=== PATIENT | male | born 1955 | race Caucasian/White ===

== ENCOUNTER → 2024-02-14 06:05 | Day surgery (SDC) | payer MEDICARE, OTHER, SELFPAY ==
--- NOTE | 2024-01-10 10:42 | CM ---
Patient is scheduled for an elective L Reverse TSA on 01/05/24- he is a same day patient. Spoke with patient prior to surgery. Introduced role of Orthopedic Navigator. Patient reports that he lives with his in a one story home. Currently he
functions independently. He does not use any DME and has never had VN services. PCP is Dr. Ibrahima Oreilly.
Discussed orthopedic program and post surgical plans. Patient will return home when directed by surgeon. Reviewed MD follow up and transition to outpatient therapy. Patient is in agreement with tentative plan and states that his will be home
with him and can assist if needed.
Patient will complete online education.
Plan: Orthopedic Navigator will be involved in the care of patient after surgery and will reassess discharge needs at that time.
[2024-01-22 13:45] VITALS: BMI 31.7
[2024-01-22 14:09] LABS: Hematocrit 33.9 % (39.0-52.0); Hemoglobin 11.3 g/dL (13.0-18.0); Mean Corp Hgb Conc. 33.3 g/dL (33.0-37.0); Mean Corpuscular Hgb 28.3 pg (27.0-31.0); Mean Platelet Volume 9.5 fL (7.4-10.4); Platelet Count 274 10^3/uL (130-400); Red Blood Cell Count 3.99 10^6/uL (4.70-6.10); Red Cell Dist. Width 17.2 % (11.5-14.5)
[2024-01-22 14:26] LABS: ALT (SGPT) 20 U/L (0-50); AST (SGOT) 20 U/L (17-59); Albumin 3.8 g/dl (3.5-5.0); Alkaline Phosphatase 83 U/L (38-126); Blood Urea Nitrogen 27 mg/dl (9-20); Calcium 8.9 mg/dl (8.4-10.2); Carbon Dioxide 29 mmol/L (22-30); Chloride 104 mmol/L (98-107); Estimated Creatinine Clearance 123 ml/min; Glucose 113 mg/dl (70-99); Potassium 4.1 mmol/L (3.5-5.1); Sodium 137 mmol/L (135-145); Total Bilirubin 0.9 mg/dl (0.2-1.3); Total Protein 6.2 g/dl (6.3-8.2); eGFR > 60.00
[2024-01-22 14:54] VITALS: BMI 31.7
[2024-02-14] VITALS (11 sets, daily range): BP systolic 120–138; BP diastolic 59–72; BMI 31.7
--- NOTE | 2024-02-14 06:36 | W.DS.TRANS ---
DC Summary - Mechanical Field Engineer
-
Discharge Instructions:
Sleep Apnea Risk Intermediate
Discharge Diagnosis/Procedures L Reverse TSA Dr. Bonner 02/14/24
Diet As tolerated
Activity Other activity
Driving Restrictions No driving
Instructions:
Stand-Alone Forms: SDS Total Shoulder D/C Inst.
Changes to Home Medications: Yes
Discharge Medications:
DC Medications w/original date entered in [facility]
atenolol 50 mg tablet 50 mg PO HS 12/06/21
baclofen 10 mg tablet 10 mg PO TID PRN pain 12/06/21
docusate sodium 100 mg capsule 100 mg PO BID 12/06/21
melatonin 10 mg tablet 20 mg PO HS 12/06/21
pantoprazole 40 mg tablet,delayed release 40 mg PO HS 12/06/21
pramipexole 0.125 mg tablet 0.125 mg PO BID 12/06/21
rosuvastatin 5 mg tablet 2.5 mg PO MOWEFR 12/06/21
Prevagen 10 mg PO Q48H 01/05/22
albuterol sulfate 90 mcg/actuation aerosol inhaler (Ventolin HFA) 2 puff inhalation DAILYPRN PRN SOB 01/05/22
naproxen sodium 220 mg tablet 1 - 2 tab PO DAILYPRN PRN pain 01/05/22
pseudoephedrine HCl 30 mg tablet (Wal-phed) 30 mg PO DAILY 01/05/22
zolpidem 5 mg tablet 5 mg PO HSPRN PRN sleep 01/05/22
atenolol 25 mg tablet 37.5 mg PO DAILY 01/21/24
dexamethasone 4 mg tablet 4 mg PO BID inflammation #6 tabs 01/22/24
gabapentin 300 mg capsule 300 mg PO TID sleep/pain #30 caps 01/22/24
mupirocin 2 % topical ointment 1 applic topical BID infection prevention #1 tube 01/22/24
ondansetron HCl 4 mg tablet 4 mg PO Q6HPRN PRN nausea #20 tabs 01/22/24
oxycodone 5 mg tablet 5 - 10 mg PO Q6HPRN PRN 1 tab moderate-2 tabs severe pain #30 tabs 01/22/24
acetaminophen 650 mg tablet,extended release 1,300 mg PO TID #0 tabs 02/14/24
aspirin 325 mg tablet 325 mg PO DAILY blood clot prevention #1 tab 02/14/24
celecoxib 200 mg capsule (Celebrex) 200 mg PO DAILY #1 cap 02/14/24
cetirizine 5 mg tablet 5 mg PO DAILY PRN allergies 02/14/24
fluoxetine 20 mg capsule (Prozac) 20 mg PO DAILY 02/14/24
lorazepam 0.5 mg tablet 0.5 mg PO HS #0 tabs 02/14/24
losartan 25 mg tablet 25 mg PO TID #0 tabs 02/14/24
magnesium hydroxide 400 mg/5 mL oral suspension (Milk of Magnesia) 30 ml PO HS PRN Constipation #1 mL 02/14/24
polyethylene glycol 3350 17 gram oral powder packet (Miralax) 17 g PO DAILY constipation #0 ea 02/14/24
sennosides 8.6 mg tablet (Senokot) 17.2 mg PO BID laxative #2 tabs 02/14/24
Home Medication Changes
dexamethasone 4 mg tablet 4 mg PO BID inflammation #6 tabs 01/22/24
gabapentin 300 mg capsule 300 mg PO TID sleep/pain #30 caps 01/22/24
mupirocin 2 % topical ointment 1 applic topical BID infection prevention #1 tube 01/22/24
ondansetron HCl 4 mg tablet 4 mg PO Q6HPRN PRN nausea #20 tabs 01/22/24
oxycodone 5 mg tablet 5 - 10 mg PO Q6HPRN PRN 1 tab moderate-2 tabs severe pain #30 tabs 01/22/24
acetaminophen 650 mg tablet,extended release 1,300 mg PO TID #0 tabs 02/14/24
aspirin 325 mg tablet 325 mg PO DAILY blood clot prevention #1 tab 02/14/24
celecoxib 200 mg capsule (Celebrex) 200 mg PO DAILY #1 cap 02/14/24
Pending Results: No
[2024-02-14] MEDS: CELEBREX 200 MG PO (06:47)
[2024-02-14] MEDS: NORMOSOL-R 1000 IV (06:47)
[2024-02-14] MEDS: TYLENOL 1000 MG PO (06:47)
[2024-02-14] MEDS: BACTROBAN NASAL 1 GRAM NASAL (06:48)
[2024-02-14] MEDS: ANCEF 5 IV (11:24)
== END | disposition home or self-care (01) ==
LOC: SDS 06:05
PROVIDERS: ATTENDING PHYSICIAN Specialist; FAMILY PHYSICIAN Family Medicine; OTHER PHYSICIAN Internal Medicine Cardiovascular Disease; OTHER PHYSICIAN Physician Assistant Medical
DX: M19.012 Primary osteoarthritis, left shoulder (principal); I48.0 Paroxysmal atrial fibrillation; I10 Essential (primary) hypertension; I25.10 Atherosclerotic heart disease of native coronary artery without angina pectoris; I87.2 Venous insufficiency (chronic) (peripheral); E66.9 Obesity, unspecified; Z68.31 Body mass index [BMI] 31.0-31.9, adult; Z79.82 Long term (current) use of aspirin; Z79.899 Other long term (current) drug therapy; Z95.5 Presence of coronary angioplasty implant and graft
CPT/HCPCS: 23472; 36415; 73020; 80053; 83036; 85027; 86850; 86900; 86901; 87070; C1713; C1776

== ENCOUNTER 2024-03-20 06:33 | Day surgery (SDC) | payer MEDICARE, OTHER, SELFPAY ==
[2024-03-20] VITALS (19 sets, daily range): BP systolic 120–170; BP diastolic 64–91; BMI 29.6
[2024-03-20] MEDS: NORMOSOL-R 1000 IV (10:00)
[2024-03-20] MEDS: TYLENOL 1000 MG PO (10:17)
[2024-03-20] MEDS: CELEBREX 200 MG PO (10:17)
[2024-03-20] MEDS: VENTOLIN NEBULES 1.25 MG INH (15:00)
== END 2024-03-20 16:30 | disposition home or self-care (01) ==
LOC: SDS 06:33
PROVIDERS: ATTENDING PHYSICIAN Specialist
DX: S43.005A Unspecified dislocation of left shoulder joint, initial encounter (principal); M25.519 Pain in unspecified shoulder; X58.XXXA Exposure to other specified factors, initial encounter; Z96.612 Presence of left artificial shoulder joint
CPT/HCPCS: 23655; 73030; 76000

== ENCOUNTER 2024-04-18 06:42 | Day surgery (SDC) | payer MEDICARE, OTHER, SELFPAY ==
[2024-04-17 14:55] VITALS: BMI 29.6
[2024-04-18] VITALS (11 sets, daily range): BP systolic 98–148; BP diastolic 56–79; BMI 29.6
[2024-04-18] MEDS: TYLENOL 1000 MG PO (07:51)
[2024-04-18] MEDS: CELEBREX 200 MG PO (07:55)
== END 2024-04-18 09:50 | disposition home or self-care (01) ==
LOC: PACUSDS 06:42
PROVIDERS: ATTENDING PHYSICIAN Specialist
DX: T84.028A Dislocation of other internal joint prosthesis, initial encounter (principal); Y79.2 Prosthetic and other implants, materials and accessory orthopedic devices associated with adverse incidents; Z96.612 Presence of left artificial shoulder joint
CPT/HCPCS: 23655; 73020; 76000

== ENCOUNTER → 2024-04-22 14:16 | Outpatient (REF) | payer MEDICARE, OTHER, SELFPAY | LOC: HWRAD 14:16 | PROVIDERS: ATTENDING PHYSICIAN Specialist; FAMILY PHYSICIAN Family Medicine | DX: Z96.612 Presence of left artificial shoulder joint (principal) | CPT/HCPCS: 73200 ==

== ENCOUNTER 2024-05-21 14:26 | Outpatient (RCR) | payer MEDICARE, OTHER, SELFPAY ==
[2024-05-14 14:30] VITALS: BP 139/66
[2024-05-14] MEDS: INJECTAFER 265 MG IV (14:55)
[2024-05-14 15:30] VITALS: BP 139/69
[2024-05-14 16:03] VITALS: BP 138/61
[2024-05-21 14:30] VITALS: BP 146/68
[2024-05-21] MEDS: INJECTAFER 265 MG IV (14:54)
[2024-05-21 15:35] VITALS: BP 131/59
== END 2024-05-25 09:02 | disposition home or self-care (01) ==
LOC: OID 14:26
PROVIDERS: ATTENDING PHYSICIAN Physician Assistant; FAMILY PHYSICIAN Family Medicine
DX: D50.0 Iron deficiency anemia secondary to blood loss (chronic) (principal); D50.9 Iron deficiency anemia, unspecified
CPT/HCPCS: 96365; J1439

== ENCOUNTER 2024-05-29 08:59 | Inpatient (IN) | payer MEDICARE, OTHER, SELFPAY ==
--- NOTE | 2024-05-05 12:48 | CM ---
Patient is scheduled for an Revision of L Reverse TSA on 05/29/24. Spoke with patient prior to surgery. RE Introduced role of Orthopedic Navigator. Patient reports that he lives with his in a one story home. Currently he functions
independently. He does not use any DME and has never had VN services. PCP is Dr. Ibrahima Oreilly.
Discussed orthopedic program and post surgical plans. Patient will return home when directed by surgeon. Reviewed MD follow up and transition to outpatient therapy. Patient is in agreement with tentative plan and states that his will be home
with him and can assist if needed.
Patient completed online education for shoulder surgery in January 2024. He reports he has had 2 dislocations and now will have revision.
Plan: Orthopedic Navigator will be involved in the care of patient after surgery and will reassess discharge needs at that time.
[2024-05-08 13:19] VITALS: BMI 31.9
[2024-05-08 13:58] LABS: Hematocrit 31.5 % (39.0-52.0); Hemoglobin 9.6 g/dL (13.0-18.0); Mean Corp Hgb Conc. 30.5 g/dL (33.0-37.0); Mean Corpuscular Hgb 25.5 pg (27.0-31.0); Mean Corpuscular Volume 83.8 fL (80.0-94.0); Mean Platelet Volume 9.6 fL (7.4-10.4); Platelet Count 250 10^3/uL (130-400); Red Blood Cell Count 3.76 10^6/uL (4.70-6.10); Red Cell Dist. Width 15.4 % (11.5-14.5); White Blood Cell Count 6.8 10^3/uL (4.8-10.8)
[2024-05-08 14:11] LABS: ALT (SGPT) 14 U/L (0-50); AST (SGOT) 23 U/L (17-59); Albumin 3.8 g/dl (3.5-5.0); Alkaline Phosphatase 81 U/L (38-126); Blood Urea Nitrogen 22 mg/dl (9-20); Calcium 9.4 mg/dl (8.4-10.2); Carbon Dioxide 27 mmol/L (22-30); Chloride 104 mmol/L (98-107); Estimated Creatinine Clearance 105 ml/min; Glucose 89 mg/dl (70-99); Potassium 4.2 mmol/L (3.5-5.1); Sodium 140 mmol/L (135-145); Total Bilirubin 0.7 mg/dl (0.2-1.3); Total Protein 6.2 g/dl (6.3-8.2); eGFR > 60.00
[2024-05-08 14:37] LABS: Erythrocyte Sed Rate 19 mm/hour (0-20)
[2024-05-08 15:38] LABS: Iron 39 ug/dl (49-181)
[2024-05-08 15:39] LABS: C-Reactive Protein < 5.00 mg/L (0.0-10.00)
[2024-05-08 15:47] LABS: Percent Saturation 8 % (20-50); Total Iron Binding Capacity 465 ug/dl (261-462)
[2024-05-08 16:15] LABS: Ferritin 7.8 ng/ml (17.9-464.0)
[2024-05-08 16:46] LABS: Folate > 20.0 ng/ml (2.76-20); Vitamin B12 289 pg/ml (239-931)
[2024-05-08 16:48] VITALS: BMI 31.9
[2024-05-09 09:41] LABS: Glycohemoglobin (HgbA1c) 5.8 % (4.0-5.6)
[2024-05-29] VITALS (10 sets, daily range): BP systolic 102–157; BP diastolic 51–74
[2024-05-29] MEDS: CELEBREX 200 MG PO (09:41)
[2024-05-29] MEDS: TYLENOL 1000 MG PO (09:41)
[2024-05-29] MEDS: BACTROBAN NASAL 1 GRAM NASAL (09:41)
[2024-05-29] MEDS: NORMOSOL-R 1000 IV (09:42)
--- NOTE | 2024-05-29 09:44 | CM ---
Reviewed chart. Patient admitted as planned for L Reverse TS Revision. The discharge plans is for patient to return home at discharge. He will have support from his when he goes home. Reviewed home exercise program and no need for VN or
outpatient services while in the sling; he expressed understanding. Also reviewed transition to outpatient PT. Discussed MD follow up and he is aware of need to schedule appointment.
Patient will use [email or web address] for discharge prescriptions.
No discharge planning needs identified at this time.
--- NOTE | 2024-05-29 14:12 | W.DS.TRANS ---
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
-
Discharge Instructions:
Discharge Diagnosis/Procedures S/p revision left reverse total shoulder
arthroplasty
Diet No restrictions
Activity No restrictions
Additional Activity Sling to remain in place at all times, except to
shower and dress, for 4 weeks post op.
Driving Restrictions Not until seen by your Dr
Bathing Restrictions OK to Shower
Wound Care Keep dressing in place until post op appt in 2
weeks. Okay to get dressing wet.
Instructions:
Stand-Alone Forms: Total Shoulder Replacement D/C
Changes to Home Medications: No
Discharge Medications:
DC Medications w/original date entered in [facility]
atenolol 50 mg tablet 50 mg PO HS 12/06/21
baclofen 10 mg tablet 10 mg PO TID PRN pain 12/06/21
docusate sodium 100 mg capsule 100 mg PO HS 12/06/21
melatonin 10 mg tablet 20 mg PO HS 12/06/21
pantoprazole 40 mg tablet,delayed release 40 mg PO HS 12/06/21
pramipexole 0.125 mg tablet 0.125 mg PO BID 12/06/21
rosuvastatin 5 mg tablet 2.5 mg PO MOWEFR 12/06/21
Prevagen 10 mg PO DAILY 01/05/22
albuterol sulfate 90 mcg/actuation aerosol inhaler (Ventolin HFA) 2 puff inhalation Q6HPRN PRN SOB 01/05/22
zolpidem 5 mg tablet 5 mg PO HSPRN PRN sleep 01/05/22
atenolol 25 mg tablet 37.5 mg PO DAILY 01/21/24
ondansetron HCl 4 mg tablet 4 mg PO Q6HPRN PRN nausea #20 tabs 01/22/24
losartan 25 mg tablet 25 mg PO TID #0 tabs 02/14/24
celecoxib 200 mg capsule (Celebrex) 200 mg PO BID 04/17/24
duloxetine 20 mg capsule,delayed release (Cymbalta) 20 mg PO DAILY 04/17/24
ezetimibe 10 mg tablet (Zetia) 10 mg PO MOWEFR 04/17/24
gabapentin 300 mg capsule 300 mg PO BID sleep/pain 04/17/24
sennosides 8.6 mg tablet (Senokot) 17.2 mg PO BID PRN laxative 04/17/24
acetaminophen 650 mg tablet,extended release 1,300 mg PO Q12H PRN pain 05/06/24
aspirin 81 mg capsule 81 mg PO DAILY 05/06/24
cetirizine 10 mg tablet 10 mg PO DAILY PRN allergies 05/06/24
lorazepam 0.5 mg tablet 0.5 mg PO HSPRN PRN insomnia 05/08/24
mupirocin 2 % topical ointment 1 applic intranasal BID #1 tube 05/08/24
aspirin 325 mg tablet 325 mg PO DAILY 30 days #30 tabs 05/29/24
oxycodone 5 mg tablet 5 mg PO Q6H PRN mild pain 5 days #30 tabs 05/29/24
Home Medication Changes
Pending Results: No
[2024-05-29] MEDS: ANCEF 5 IV (16:04)
== END 2024-05-29 16:35 | disposition home or self-care (01) | DRG 483 ==
LOC: AMOS 08:59
PROVIDERS: ADMITTING PHYSICIAN Specialist; FAMILY PHYSICIAN Family Medicine
PROC: 0RRK0JZ Replacement of Left Shoulder Joint with Synthetic Substitute, Open Approach (ICD-10-PCS; 2024-05-29)
PROC: 0RPK0JZ Removal of Synthetic Substitute from Left Shoulder Joint, Open Approach (ICD-10-PCS; 2024-05-29)
DX: T84.028A Dislocation of other internal joint prosthesis, initial encounter (principal); Y79.8 Miscellaneous orthopedic devices associated with adverse incidents, not elsewhere classified; I10 Essential (primary) hypertension; E78.5 Hyperlipidemia, unspecified; I25.10 Atherosclerotic heart disease of native coronary artery without angina pectoris; I48.0 Paroxysmal atrial fibrillation; Z95.5 Presence of coronary angioplasty implant and graft; Z79.82 Long term (current) use of aspirin
CPT/HCPCS: 36415; 73020; 80053; 82607; 82728; 82746; 83036; 83540; 83550; 85027; 85652; 86140; 86850; 86900; 86901; 86920; 87070; 87075; 87176; 87205